=== PATIENT | female | born 1950 | race Caucasian/White ===

== ENCOUNTER → 2017-02-19 | Outpatient (CLI) | payer MEDICARE | END | disposition home or self-care (01) | LOC: YCFC.O 09:00 | PROVIDERS: ATTEND Nurse Practitioner Family | DX: Z00.00 Encounter for general adult medical examination without abnormal findings (principal); Z13.220 Encounter for screening for lipoid disorders; E55.9 Vitamin D deficiency, unspecified ==

== ENCOUNTER → 2017-04-30 | Outpatient (CLI) | payer MEDICARE | END | disposition home or self-care (01) | LOC: YCFC.O 15:03 | PROVIDERS: ATTEND Nurse Practitioner Family | DX: R50.9 Fever, unspecified (principal) ==

== ENCOUNTER → 2017-08-21 | Outpatient (CLI) | payer MEDICARE ==
--- NOTE | 2017-08-21 23:44 | RAD ---
Procedure: XR ABDOMEN 2 VIEWS SUPINE ERECT Exam Date: 08/21/2017 Ordering Provider: EVELYN Victoria Clinical Indication: UNSPECIFIED ABDOMINAL PAIN Comparison: None Findings: There is no small or large bowel distention. There is no pneumoperitoneum. There are no suspicious calcifications. Pelvic phleboliths. Aortic calcification. There is no acute osseous abnormality. Scoliosis. Impression: 1. No acute findings. Electronically signed by: Manan Fish MD 08/21/2017 11:43 PM CDT
== END ==
LOC: RAD 14:30
PROVIDERS: ATTEND Nurse Practitioner Family
DX: R10.9 Unspecified abdominal pain (principal)

== ENCOUNTER → 2018-02-20 | Outpatient (CLI) | payer MEDICARE | LOC: LAB.O 08:24 | PROVIDERS: ATTEND Nurse Practitioner Family | DX: Z00.00 Encounter for general adult medical examination without abnormal findings (principal); Z13.220 Encounter for screening for lipoid disorders ==

== ENCOUNTER → 2018-02-22 | Outpatient (CLI) | payer MEDICARE ==
--- NOTE | 2018-02-22 13:07 | RAD ---
EXAM DESCRIPTION: Chest,2 Views CLINICAL HISTORY: CHEST PAIN COMPARISON: Previous study April 05, 2016 TECHNIQUE: PA/lateral FINDINGS: Dextroscoliotic curvature of the thoracic spine. Tubular density over the right neck may be external to the patient. Right apical pleural-parenchymal scarring is unchanged compared to previous. Heart size is normal with normal pulmonary vascularity. No pleural effusion or pneumothorax. Lungs are clear with no consolidating infiltrate. Lateral view shows intact sternum and T-spine. IMPRESSION: No acute process is identified in the chest. Electronically signed by: Tucker Cowan MD 02/22/2018 1:06 PM [facility]
== END ==
LOC: YCFC.O 10:08
PROVIDERS: ATTEND Nurse Practitioner Family
DX: R07.89 Other chest pain (principal)

== ENCOUNTER → 2018-12-06 | Outpatient (CLI) | payer MEDICARE | LOC: LAB.O 10:53 | PROVIDERS: ATTEND Nurse Practitioner Family | DX: R07.89 Other chest pain (principal); R00.0 Tachycardia, unspecified ==

== ENCOUNTER → 2019-08-05 | Outpatient (CLI) | payer MEDICARE, OTHER ==
--- NOTE | 2019-08-05 16:10 | CT ---
EXAM DESCRIPTION: Lung Screen Low Dose CLINICAL HISTORY: 68 years Female, HX OF TOBACCO USE COMPARISON: None. TECHNIQUE: 3 mm axial images through the lungs were performed in soft tissue and lung windows in the absence of intravenous contrast. Images were obtained using a low dose protocol and coronal and sagittal reconstructions were obtained. FINDINGS: The visualized thyroid gland and supraclavicular region appear normal. No evidence of abnormally enlarged mediastinal, hilar or axillary lymphadenopathy. Trachea is midline and the central tracheobronchial tree is patent. Emphysema. Scarring is noted in the bilateral lung apices. In addition there is a 2.4 x 1 cm soft tissue density in the right lung apex which could also represent scarring. However associated soft tissue mass cannot be completely excluded. No evidence of pleural effusions. The heart is normal in size with no pericardial effusion. The visualized aorta is nonaneurysmal with moderate atherosclerosis. The superior vena cava is normal in size and caliber. Moderate coronary artery atherosclerosis. Small hiatal hernia with reflux. Limited evaluation of the upper abdomen demonstrates no gross abnormality. Moderate degenerative changes are identified throughout the visualized spine. IMPRESSION: Emphysema with biapical scarring. In addition there is a 2.4 x 1 cm soft tissue mass in the right lung apex which could represent scarring. However underlying mass cannot be completely excluded. Attention on further follow-up studies is recommended. Lung RADS category 2. Electronically signed by: Georgina Cordoba MD 08/05/2019 4:08 PM CDT
== END ==
LOC: CT 15:00
PROVIDERS: ATTEND Family Medicine
DX: Z87.891 Personal history of nicotine dependence (principal); J43.9 Emphysema, unspecified; J98.4 Other disorders of lung; R91.8 Other nonspecific abnormal finding of lung field

== ENCOUNTER → 2019-08-15 | Outpatient (CLI) | payer MEDICARE ==
--- NOTE | 2019-08-18 07:16 | RAD ---
EXAM DESCRIPTION: Hand,Left 3 Views CLINICAL HISTORY: 69 years Female, DOG BITE COMPARISON: None. FINDINGS: Three views of the left hand show no acute fracture or malalignment. No radiopaque foreign body or soft tissue gas. Soft tissue injury overlying the fourth PIP joint is suspected. IMPRESSION: Soft tissue injury without acute fracture or malalignment. Electronically signed by: Declan Rodriguez MD 08/18/2019 7:14 AM CDT
== END ==
LOC: YCFC.O 17:13
PROVIDERS: ATTEND Nurse Practitioner
DX: S61.452A Open bite of left hand, initial encounter (principal)

== ENCOUNTER 2019-11-03 05:23 | Day surgery (SDC) | payer MEDICARE ==
[2019-11-03] MEDS: PROPARACAINE 0.5% OPHTH SOL 15 ML BTTL RIGHT_EYE ONE ×2 (08:52→09:34)
[2019-11-03] MEDS: MOXIFLOXACIN HCL (OPHTH) 1 DROP DROPS RIGHT_EYE ONE ×2 (08:53→09:37)
[2019-11-03] MEDS: DEXAMETHASONE 0.1% OPHTH SOL 1 DROP RIGHT_EYE ONE ×2 (08:53→09:34)
[2019-11-03] MEDS: LIDOCAINE 1% 2 ML VIAL INJ ONE ×2 (08:53→09:34)
[2019-11-03] MEDS: BRIMONIDINE 0.2% OPHTH DROPS RIGHT_EYE ONE ×2 (08:54→09:34)
[2019-11-03] MEDS: TOBRAMYCIN SULF 0.3 % OPHT SOL 1 DROP RIGHT_EYE ONE ×2 (08:54→09:34)
[2019-11-03] MEDS ORDERED: PROPARACAINE 0.5% OPHTH SOL 15 ML BTTL ONE (08:55)
[2019-11-03] MEDS ORDERED: MOXIFLOXACIN HCL (OPHTH) 1 DROP DROPS ONE (08:55)
[2019-11-03] MEDS ORDERED: TROP1%/CYCLOPEN 1%/PHENYL 2.5% DROPS ONE (08:55)
[2019-11-03] MEDS ORDERED: MIDAZOLAM INJ 2 MG/2 ML VIAL ONE (09:17)
== END 2019-11-03 10:26 | disposition home health service (06) ==
LOC: AMB 05:23
PROVIDERS: ATTEND Ophthalmology
DX: H25.11 Age-related nuclear cataract, right eye (principal); I10 Essential (primary) hypertension; I25.10 Atherosclerotic heart disease of native coronary artery without angina pectoris; F17.200 Nicotine dependence, unspecified, uncomplicated; J44.9 Chronic obstructive pulmonary disease, unspecified; E66.9 Obesity, unspecified; Z79.899 Other long term (current) drug therapy; Z79.82 Long term (current) use of aspirin; Z79.02 Long term (current) use of antithrombotics/antiplatelets; Z95.5 Presence of coronary angioplasty implant and graft
CPT/HCPCS: 00142; 66984; J2250

== ENCOUNTER 2019-12-27 13:27 | Observation (INO) | payer MEDICARE ==
[2019-12-27] MEDS ORDERED: SODIUM CHLORIDE 0.9% (FLUSH) 10 ML SYG IV PRN ×2 (13:41→18:03)
[2019-12-27] MEDS ORDERED: SODIUM CHLORIDE 0.9% 1000ML 1,000 ML IVS ONE ×2 (13:42→14:33)
--- NOTE | 2019-12-27 13:45 | ED.PDOC ---
History of Present Illness - General Chief Complaint: Syncope/Near Syncope Time Seen by Provider: 12/27/19 13:41 Source: patient - History of Present Illness Initial Comments: 69-year-old female with PMH of hypertension, CAD with coronary stents who is brought in by EMS from [facility] for chief complaint of passing out which occurred just prior to arrival. Patient reports she was driving her car when she had sudden onset of generalized severe crampy abdominal pain. She felt the strong urge to need to defecate so she stopped at the [facility] and was trying to walk into the bathroom when she suddenly felt very dizzy and passed out and collapsed to the ground striking the back right of her head against the ground when she fell. Fall was witnessed by bystanders and EMS called. Bystanders reported she was having poor breathing for a short while and then a short while later was awake and alert. Patient believes she was only out for a few seconds but is unsure. She states when she woke up she felt very nauseous and had worse episodes of nonbloody nonbilious emesis. She also reported cold sweats, dyspnea, dizziness. She did have urinary incontinence with the episode. EMS reported stable vitals in route, fingerstick glucose 120s. She was given IV fluids and Zofran 4 mg IV in route. Patient reports now feeling much better. Denies any chest pain, palpitations, fevers, chills, cough, diarrhea. She reports history of similar episodes in the past which have occurred since she was young. The last episode occurred about 1 year ago. She reports she has had extensive work-up in the past but no one is able to figure out the etiology. She states it feels like "my bowels become kinked for a short while and then it resolves itself." She denies any known history of bowel obstruction in the past. Denies any hx of seizure disorder. Reports she had 2 coronary stents placed 2 months ago and takes ASA & Plavix. Allergies/Adverse Reactions: Allergies NO KNOWN ALLERGY Allergy (Verified 11/03/19 13:26) Home Medications: Ambulatory Orders Acetaminophen Arthritis [Tylenol Arthritis] 650 mg PO DAILY 11/03/19 Aspirin [Adult Aspirin Regimen] 81 mg PO DAILY 11/03/19 Atorvastatin Calcium 40 mg PO DAILY 11/03/19 Cholecalciferol [D3 2000] 5,000 unit PO DAILY 11/03/19 Citalopram Hydrobromide [Citalopram] 20 mg PO DAILY 11/03/19 Clopidogrel Bisulfate 75 mg PO DAILY 11/03/19 Diphenhydramine HCl (Sleep) [Sleep Aid] 50 mg PO BEDTIME 11/03/19 amLODIPine BESYLATE [Norvasc] 5 mg PO DAILY 11/03/19 Review of Systems - Review of Systems Review of Systems: 12/27/19 13:47 as per HPI All other Systems: Reviewed and Negative Past Medical History (General) - Patient Medical History Hx Congestive Heart Failure: No Hx Diabetes: No Family Medical History - Family History Mother Family History: Unknown Physical Exam - Physical Exam General Appearance: Alert, Comfortable, No apparent distress, Other - appears diaphoretic, slightly pale, emesis on blouse, wet pants from urinary incontinence Eye Exam: bilateral normal Ears, Nose, Throat: hearing grossly normal, normal ENT inspection, normal pharynx Neck: non-tender, full range of motion, supple, normal inspection Respiratory: lungs clear, normal breath sounds, no respiratory distress, no accessory muscle use Cardiovascular/Chest: normal peripheral pulses, regular rate, rhythm, no edema, no gallop, no JVD, no murmur Peripheral Pulses: radial,right: 2+, radial,left: 2+ Gastrointestinal/Abdominal: normal bowel sounds, non tender, soft, no organomegaly, no pulsatile mass Back Exam: normal inspection, no CVA tenderness, no vertebral tenderness Extremity: normal range of motion, non-tender, normal inspection, no pedal edema, no calf tenderness, normal capillary refill Neurologic: dice maker II-XII nml as tested, no motor/sensory deficits, alert, normal mood/affect, oriented x 3 Skin Exam: normal color, warm/dry Progress - Progress Progress: 12/27/19 13:48 Syncope, abdominal pain, dyspnea -Etiology uncertain. Consider ACS, vasovagal syncope, orthostatic syncope, dehydration, heat exhaustion, seizure, bowel obstruction, acute cholecystitis, acute symptomatic cholelithiasis, acute pancreatitis, ischemic bowel, UTI, cardiac arrhythmia, electrolyte derangement, other -Patient stable upon ED arrival, feeling much better -Obtain cardiac work-up, blood work, CT imaging of the head and C-spine for possible head/neck injuries 12/27/19 15:43 -Lab work was pertinent for serum lactate 2.5 but normal WBC with Left shift or bandemia. Initial troponin 0.02, d-dimer slightly elevated 900s, CPK 200s, alk phos 240s but LFTs otherwise within normal limits. -CT of the head and C-spine reveals no acute processes. -CTA chest and CT abdomen pelvis with IV contrast was done which revealed no evidence of PE or other acute processes. Patient does have extensive calcifications noted throughout the abdominal aorta and other vasculature. -Patient has remained stable in the ED. There is been no recurrence of abdominal pain, nausea, or syncopal episodes. No noted arrhythmias. -Etiology of the syncope is still unknown. Question possibly seizure disorder, bouts of ischemic colitis which is now resolved, cardiac arrhythmia, vasovagal, other neurogenic, dehydration, other. Lactate is elevated but doubtful of sepsis given no clear source, normal serum WBC, and patient afebrile. Will withhold antibiotics at the moment. Patient is feeling much better and wishing to go home. However, I advised that she stay for further observation in the hospital given the serious nature of her acute syncopal episode along with concerning labs of lactic acidosis. She is agreeable to staying. I spoke with Teresa Fermin, hospitalist, who accepts the patient for observation placement. Chano Olvera MD Billing #[id number] 12/27/19 13:41 Sodium Chloride 0.9% (Flush) [Saline Flush Syringe] 10 ml IV PRN PRN 12/27/19 13:42 URINALYSIS Stat 12/27/19 13:45 EKG STAT 12/27/19 14:12 Hold Metformin x 48Hrs [id number] 12/27/19 14:35 BLOOD CULTURE Stat 12/27/19 15:14 EKG Assessment ONCE 12/27/19 15:15 EKG STAT 12/27/19 15:27 TROPONIN-I Stat 12/28/19 09:00 Pulse Ox Daily Laboratory Results - last 24 hr 12/27/19 12/27/19 12/27/19 13:41 13:47 13:47 WBC 7.5 RBC 3.79 L Hgb 12.1 Hct 34.1 L MCV 89.9 MCH 31.8 H MCHC 35.4 RDW 13.1 Plt Count 337 MPV 8.2 Absolute Neuts (auto) 4.20 Absolute Lymphs (auto) 2.40 Absolute Monos (auto) 0.50 Absolute Eos (auto) 0.30 Absolute Basos (auto) 0.10 Neutrophils % 56.2 Lymphocytes % 32.0 Monocytes % 7.2 Eosinophils % 3.3 Basophils % 1.3 PT 9.4 INR < 1.00 PTT (SP) 21.9 D-Dimer, Quantitative 954.0 H* Sodium Potassium Chloride Carbon Dioxide Anion Gap BUN Creatinine BUN/Creatinine Ratio Random Glucose Serum Osmolality Lactic Acid 2.5 H* Calcium Total Bilirubin AST ALT Alkaline Phosphatase Creatine Kinase Troponin I B-Natriuretic Peptide Serum Total Protein Albumin Globulin Albumin/Globulin Ratio Amylase Lipase 12/27/19 12/27/19 12/27/19 13:47 13:47 13:47 WBC RBC Hgb Hct MCV MCH MCHC RDW Plt Count MPV Absolute Neuts (auto) Absolute Lymphs (auto) Absolute Monos (auto) Absolute Eos (auto) Absolute Basos (auto) Neutrophils % Lymphocytes % Monocytes % Eosinophils % Basophils % PT INR PTT (SP) D-Dimer, Quantitative Sodium 137 Potassium 3.4 L Chloride 101 Carbon Dioxide 22 Anion Gap 17.4 BUN 18 Creatinine 0.99 BUN/Creatinine Ratio 18.2 Random Glucose 120 H Serum Osmolality 276.9 Lactic Acid Calcium 9.2 Total Bilirubin 0.5 AST 33 ALT 31 Alkaline Phosphatase 241 H Creatine Kinase 203 H* Troponin I < 0.02 B-Natriuretic Peptide 35.5 Serum Total Protein 7.8 Albumin 3.9 Globulin 3.9 H Albumin/Globulin Ratio 1.0 L Amylase Lipase 12/27/19 13:53 WBC RBC Hgb Hct MCV MCH MCHC RDW Plt Count MPV Absolute Neuts (auto) Absolute Lymphs (auto) Absolute Monos (auto) Absolute Eos (auto) Absolute Basos (auto) Neutrophils % Lymphocytes % Monocytes % Eosinophils % Basophils % PT INR PTT (SP) D-Dimer, Quantitative Sodium Potassium Chloride Carbon Dioxide Anion Gap BUN Creatinine BUN/Creatinine Ratio Random Glucose Serum Osmolality Lactic Acid Calcium Total Bilirubin AST ALT Alkaline Phosphatase Creatine Kinase Troponin I B-Natriuretic Peptide Serum Total Protein Albumin Globulin Albumin/Globulin Ratio Amylase 101 H Lipase 37 - EKG/XRAY/CT EKG: Sinus - Normal sinus rhythm, heart rate 75, no ST elevations or Q waves noted, axis normal, intervals normal, compared to 12/06/2018 EKG appears largely unchanged. XRAY: chest - no acute processes per my read Departure - Departure Clinical Impression: Syncope Qualifiers: Syncope type: unspecified Qualified Code(s): R55 - Syncope and collapse Time of Disposition: 15:43 Disposition: Admit Patient Condition: Fair Departure Forms: ED Discharge - Pt. Copy, Patient Portal Self Enrollment Referrals: Obed Short MD [Primary Care Provider] - 1-2 Weeks Home Medications: Ambulatory Orders Acetaminophen Arthritis [Tylenol Arthritis] 650 mg PO DAILY 11/03/19 Aspirin [Adult Aspirin Regimen] 81 mg PO DAILY 11/03/19 Atorvastatin Calcium 40 mg PO DAILY 11/03/19 Cholecalciferol [D3 2000] 5,000 unit PO DAILY 11/03/19 Citalopram Hydrobromide [Citalopram] 20 mg PO DAILY 11/03/19 Clopidogrel Bisulfate 75 mg PO DAILY 11/03/19 Diphenhydramine HCl (Sleep) [Sleep Aid] 50 mg PO BEDTIME 11/03/19 amLODIPine BESYLATE [Norvasc] 5 mg PO DAILY 11/03/19 Decision To Admit - Decistion To Admit Decision to Admit Reason: Admit from ER Decision to Admit Date: 12/27/19 Decision to Admit Time: 15:52
[2019-12-27] MEDS ORDERED: PROMETHAZINE HCL INJ 12.5 MG in SODIUM CHLORIDE 0.9% 50ML 50 ML IVPB ONE (14:06)
--- NOTE | 2019-12-27 14:28 | CT ---
EXAM DESCRIPTION: Head CLINICAL HISTORY: fall, closed head injury, on ASA/Plavix COMPARISON: None available TECHNIQUE: Non contrast cranial CT with multiplanar reconstructions. FINDINGS: No acute intracranial hemorrhage, transcortical infarct, mass or mass effect. No intra or extra-axial fluid collection. Increased density within the bilateral lateral ventricles likely related to choroid plexus calcifications. No focal edema or midline shift. The ventricle and sulci are normal for age. No hydrocephalus. The trujillo-white matter differentiation is intact. Nonspecific mineralization of the bilateral basal ganglia. Intracranial atherosclerosis. No displaced calvarial fracture. Mild mucoperiosteal thickening involves the bilateral ethmoid air cells. Mild layering secretions noted within the left sphenoid sinus. The remainder of the visualized paranasal sinuses and the mastoids are clear. IMPRESSION: 1. No acute intracranial abnormality. 2. Paranasal sinus disease as above. This exam was performed according to our departmental dose-optimization program, which includes automated exposure control, adjustment of the mA and/or kV according to patient size and/or use of iterative reconstruction technique. Electronically signed by: Jerman Cameron DO 12/27/2019 2:26 PM CDT
--- NOTE | 2019-12-27 14:37 | CT ---
EXAM DESCRIPTION: Cervical Spine CLINICAL HISTORY: fall, closed head injury, on ASA/Plavix COMPARISON: CT chest 08/05/2019. TECHNIQUE: Cervical CT is performed with thin-section axial imaging. MPRs are created and reviewed as well. This exam was performed according to our departmental dose-optimization program, which includes automated exposure control, adjustment of the mA and/or kV according to patient size and/or use of iterative reconstruction technique. FINDINGS: Moderate multilevel cervical spine degenerative changes with degenerative trace (1-2 mm) anterolisthesis of C3 on C4. There is reversal of the cervical lordosis within the upper cervical spine. Multilevel intervertebral disc height loss, endplate sclerosis and small marginal osteophyte formation most pronounced at C4-C5 and C6-C7. Moderate bilateral facet hypertrophy more pronounced at C2-C3 and C3-C4 on the left. The vertebral body heights are relatively maintained. No displaced fracture or significantly appearing subluxation is seen. The craniocervical junction is intact. The atlantodental dental interval is intact. The prevertebral soft tissues are within normal limits. Right upper lobe 2.4 cm mass may be slightly more prominent when compared to prior examination dated 08/05/2019. IMPRESSION: 1. No acute cervical spine fracture or malalignment. 2. Moderate multilevel cervical spine degenerative changes. 3. Right upper lobe mass may be slightly more prominent when compared to prior examination dated 08/05/2019. Further evaluation with PET/CT or biopsy should be considered. Electronically signed by: Jerman Cameron DO 12/27/2019 2:36 PM CDT
--- NOTE | 2019-12-27 14:42 | RAD ---
EXAM DESCRIPTION: Chest,1 View CLINICAL HISTORY: 69 years Female, syncope, dyspnea COMPARISON: Radiographs 02/22/2018. CT chest dated 08/05/2019 TECHNIQUE: AP portable chest. FINDINGS/IMPRESSION: Biapical pleural thickening/scarring. Right upper lobe apical mass is better seen on prior CT. Mild central pulmonary vascular congestion. No focal consolidation, pneumothorax or pleural effusion seen. The heart is normal in size. The aortic knob is partially calcified. No acute osseous abnormality. Electronically signed by: Jerman Cameron DO 12/27/2019 2:41 PM CDT
--- NOTE | 2019-12-27 15:23 | CT ---
EXAMINATION: CT Angiogram Chest with contrast CT abdomen and pelvis INDICATION: Elevated d-dimer. Acute abdominal pain. Nausea and vomiting COMPARISON: CT chest from August 05, [address] abdomen from August 09, 2015 TECHNIQUE: Axial CT angiogram of the chest was obtained after the uneventful administration of intravenous contrast. 2D and 3D reconstructions, including advanced vessel analysis, are performed on an independent, advanced workstation. Axial CT scan of the abdomen and pelvis was obtained after the uneventful administration of intravenous contrast. Coronal and sagittal reformats were provided. This CT exam was performed using one or more of the following dose reduction techniques: Automated exposure control, Adjustment of the mA and/or kV according to patient size, Use of iterative reconstruction technique FINDINGS: PULMONARY ARTERY: No filling defects to suggest pulmonary embolism. HEART: Heart is normal in size. Coronary artery calcifications are present. THORACIC AORTA: Scattered atheromatous changes throughout the thoracic aorta. No aneurysm CHEST WALL: Normal THYROID: No thyroid nodules. LYMPH NODES: No pathologically enlarged axillary, mediastinal, or hilar lymph nodes. PRIMARY AIRWAYS: Primary airways are patent. LUNGS: [id number] emphysema changes. No pleural effusion. There are what appear to be stable areas of scarring noted at the bilateral lung apices. There is an area measuring 2.4 x 2.1 cm which appears to be more nodular the right lung apex. This could also represent an area of scarring, however is difficult to exclude a lung nodule. OTHER CHEST FINDINGS: N/A LIVER: No intrahepatic lesions. No intrahepatic biliary ductal dilation. GALLBLADDER AND CBD: Normal. PANCREAS: Normal. SPLEEN: Not enlarged. ADRENAL GLANDS: Normal. KIDNEYS AND URETERS: No solid or cystic renal mass. No hydronephrosis. URINARY BLADDER: Suboptimally distended and therefore not well evaluated. PELVIS: Hysterectomy changes. No free fluid in the pelvis. BOWEL: Gas and stool throughout the colon. Normal appendix No dilated loops of small bowel. No obstruction. Small hiatus hernia. AORTA AND VASCULATURE: Extensive atheromatous changes throughout the abdominal aorta. No aneurysm. LYMPH NODES: No pathologically enlarged retroperitoneal, mesenteric, or pelvic lymph nodes. ABDOMINAL WALL: Tiny fat-containing umbilicus hernia. MESENTERY/ASCITES: Normal. OSSEOUS STRUCTURES: There is dextroconvex curvature of the lower thoracic spine and levoconvex curvature of the lumbar spine. There are extensive multilevel degenerative changes noted throughout the thoracic or lumbar spine. There are mild degenerative changes of the hips. OTHER: N/A IMPRESSION: 1. No pulmonary embolism. 2. Iugarhxd-mm-drztxr emphysema changes. 3. There is what appears to be asymmetric scarring at the right lung apex favored over a true lung nodule. This is stable when compared to prior CT from August 05, 2019. An additional follow-up is recommended in 6 months versus a PET/CT. 4. No focal consolidation throughout the lungs 5. No acute inflammatory process in the abdomen or pelvis Electronically signed by: Lukas Maldonado MD 12/27/2019 3:21 PM CDT
[2019-12-27] MEDS ORDERED: ACETAMINOPHEN 325 MG TAB PO PRN (18:03)
[2019-12-27] MEDS ORDERED: ONDANSETRON INJ 4 MG/2 ML VIAL IV PRN (18:03)
[2019-12-27] MEDS ORDERED: IV SET AND CAP CHANGE INJ INJ SCH (18:30)
[2019-12-27] MEDS ORDERED: ENOXAPARIN SODIUM 40 MG/0.4 ML SYG SUBCU ONE (19:59)
[2019-12-27] MEDS ORDERED: diphenhydrAMINE HCL 25 MG CAP ONE (19:59)
[2019-12-27] MEDS ORDERED: DIPHENHYDRAMINE HCL 50 MG PO SCH (21:00)
[2019-12-27] MEDS ORDERED: ENOXAPARIN SODIUM 40 MG/0.4 ML SYG SUBCU SCH (21:00)
[2019-12-28] MEDS ORDERED: PANTOPRAZOLE SODIUM IV 40 MG VIAL ONE (04:57)
[2019-12-28] MEDS ORDERED: PANTOPRAZOLE SODIUM IV 40 MG VIAL IV SCH (06:30)
[2019-12-28] MEDS ORDERED: CITALOPRAM HBR 20 MG TAB ONE (08:53)
[2019-12-28] MEDS ORDERED: CLOPIDOGREL 75 MG TAB ONE (08:53)
[2019-12-28] MEDS ORDERED: ASPIRIN (ENTERIC COATED) 81 MG TAB PO ONE (08:53)
[2019-12-28] MEDS ORDERED: amLODIPine BESYLATE 5 MG TAB ONE (08:53)
[2019-12-28] MEDS ORDERED: CYCLOBENZAPRINE HCL 10 MG TAB ONE (08:54)
[2019-12-28] MEDS ORDERED: ATORVASTATIN 20 MG TAB PO ONE (08:54)
[2019-12-28] MEDS ORDERED: ASPIRIN (ENTERIC COATED) 81 MG TAB PO SCH (09:00)
[2019-12-28] MEDS ORDERED: CYCLOBENZAPRINE HCL 10 MG TAB PO SCH (09:00)
[2019-12-28] MEDS ORDERED: amLODIPine BESYLATE 5 MG TAB PO SCH (09:00)
[2019-12-28] MEDS ORDERED: NON-FORMULARY MEDICATION 1 EA MIS (Atorvastatin Calcium [Atorvastatin Calcium] 40 MG) PO SCH (09:00)
[2019-12-28] MEDS ORDERED: CITALOPRAM HBR 20 MG TAB PO SCH (09:00)
[2019-12-28] MEDS ORDERED: CLOPIDOGREL 75 MG TAB PO SCH (09:00)
[2019-12-28 12:41] VITALS: BP 130/72; TEMP 98; O2SAT 95
--- NOTE | 2020-01-05 09:03 | SSS ---
SUPERVISING PHYSICIAN: Campos Kellogg MD DISCHARGE DIAGNOSES: 1. Syncopal episodes with loss of consciousness. 2. History of syncopal episodes since she was a child with unknown etiology. 3. Hypertension. 4. Hyperlipidemia. HISTORY OF PRESENT ILLNESS: This is a 69 year-old patient with a past history of hypertension and some recent coronary stents. She was brought to the Emergency Room via ambulance from [facility] with a chief complaint of passing out at [facility]. It is reported that she was driving her car and had a strong urge to defecate so on her way home she stopped at [facility] and on the way to the bathroom she suddenly felt very dizzy and she passed out and collapsed to the floor. It was witnessed by bystanders. She did have loss of consciousness. The paramedics were called. Initially, she was short of breath with low 02 saturation. She was placed on oxygen and became more alert. It was reported that she was only out for a few seconds. By the time she reached the Emergency Room, she was alert and oriented. She had complaints of diaphoresis with a glucose in the 120s. She was nauseated but did not actually vomit. She has had this off and on since she was a young child. She said her sister also has the same type of episodes and has had quite a bit of testing done and it is still of unknown etiology. She got to the Emergency Room and her vital signs were stable. Her labs showed a CBC that was unremarkable with an elevated D-dimer at 954. Potassium was slightly low at 3.4. All other electrolytes were within normal limits. Her usual lactic acid is 2.5. The creatinine kinase is 203, negative troponin. Amylase 101, lipase 37, TSH was 1.27. Urinalysis was unremarkable. Blood cultures were drawn. She had a chest x-ray which showed: 1. Biapical pleural thickening and scarring, right upper lobe apical mass, better seen on prior CTs. 2. Mild central pulmonary vasculature congestion but no focal consolidation, pneumothorax or pleural effusion. Normal sized heart. 3. The aortic knob is partially calcified ad no acute osseous abnormalities. Cervical spine CT showed: 1. No acute cervical spine spine fracture or malalignment. 2. Moderate multilevel cervical spine degenerative changes. 3. Right upper lobe mass, slightly more prominent when compared to prior examination. Recommend PET, CT or biopsy as an outpatient. Head CT: 1. No acute intracranial abnormality. 2. Paranasal sinus disease as above. Chest/Thorax CTA: 1. No pulmonary embolism. 2. Moderate to severe emphysema changes. 3. Symmetrical scarring in the right lung apex favored over a true lung nodule, stable when compared to prior CT from August 05, 2019. Additional followup is recommended, 6 months with PET versus CT. 4. No focal consolidations in the lungs. 5. No acute inflammatory process in the abdomen or pelvis. The patient was placed in observation in the hospital. PAST MEDICAL HISTORY: 1. Hypertension. 2. Syncopal episodes since childhood. 3. Hyperlipidemia. PAST SURGICAL HISTORY: 1. Hysterectomy. 2. Breast biopsy. 3. Two cardiac stents. CURRENT MEDICATIONS: 1. Acetaminophen. 2. Aspirin. 3. Atorvastatin. 4. Vitamin D3. 5. Citalopram. 6. Plavix. 7. Diphenhydramine. 8. Amlodipine. ALLERGIES: No known drug allergies. SOCIAL HISTORY: She smokes about a half pack of cigarettes daily and has for many years. She denies any ETOH or illicit drug use. REVIEW OF SYSTEMS: GENERAL: Negative for fever,chills or weight changes. HEENT: Negative for sinus symptoms, ear pain, vision changes, sore throat. RESPIRATORY: Negative for coughing, wheezing, shortness of breath. CARDIAC: Negative for chest pain, palpitations, tachycardia. GI: Positive for nausea and vomiting, cramping but negative for abdominal pain or constipation. GENITOURINARY: Negative for hematuria, dysuria, polyuria. SKIN: Negative for lesions or rashes. NEUROLOGICAL: Positive for syncope and weakness, negative for seizures or headaches, PHYSICAL EXAMINATION: VITAL SIGNS: Temperature 98, heart rate 79, blood pressure 130/72, respiratory rate 18, oxygen saturation 95% on room air. GENERAL: This is a 69 year-old female patient lying in her hospital bed. She is in no acute distress. HEENT: Normocephalic and atraumatic. Pupils are equal and reactive. Oropharynx is clear. NECK: Supple without mass. CHEST: Essence clear to auscultation bilaterally. There is equal rise and fall of the chest with inspiration and expiration. CARDIOVASCULAR: Regular rate and rhythm. ABDOMEN: Soft, nondistended, non-tender. Bowel sounds are positive. EXTREMITIES: No cyanosis, clubbing, or edema. SKIN: Warm and dry. NEUROLOGIC: She is awake, alert, and oriented x3. Cranial nerves II through XII are grossly intact as tested. LABORATORY: CBC is unremarkable with hemoglobin of 11.2, hematocrit 32.1. Electrolytes are basically within normal limits with the exception of alkaline phosphatase is elevated at 217. All other labs and films are per the EMR. HOSPITAL COURSE: The patient was placed in observation. Neuro checks were done and she was placed on an laboratory monitor to watch her heart rate. She had no further symptoms. She will be discharged home with close followup with Dr. Short. DISCHARGE PLAN: The patient will be discharged home in stable condition. She is to resume her previous diet and activity and increase her activity as tolerated. She is to return to the hospital on 12/31/19 for an MRI of the brain and carotid ultrasound. She is to resume her previous medications. I have given her a few Xanax for her MRI. Followup with Dr. Short and to call his office and get an appointment after her MRI. It may be helpful for her to have a industrial maintenance manager for about a week to rule out any kind of cardiac arrhythmias. Clinically, at this time she does not appear to have a sinus infection but that can be followed up when she sees Dr. Short and review the MRI as well as the carotid ultrasound and if it is recommended she have a head scan or CT scan of her lungs in the next 6 months. I have also discussed smoking cessation at length and she understands that she should do so. She is to call Dr. Short's office or return to the hospital for any problems or complications. DISCHARGE MEDICATIONS: 1. Amlodipine. 2. Plavix. 3. Citalopram. 4. Atorvastatin. 5. Diphenhydramine. 6. Vitamin D3. 7. Aspirin. 8. Acetaminophen with Tylenol. 9. Cyclobenzaprine. 10. Alprazolam. #[id number] [facility]
== END 2019-12-28 13:14 | disposition home or self-care (01) ==
LOC: ER 13:27 → MS 16:18
PROVIDERS: ADMIT Nurse Practitioner Acute Care; ATTEND Nurse Practitioner Acute Care
DX: R55 Syncope and collapse (principal); I10 Essential (primary) hypertension; E78.5 Hyperlipidemia, unspecified; I25.10 Atherosclerotic heart disease of native coronary artery without angina pectoris; R09.02 Hypoxemia; E87.6 Hypokalemia; F17.210 Nicotine dependence, cigarettes, uncomplicated; M47.812 Spondylosis without myelopathy or radiculopathy, cervical region; R91.8 Other nonspecific abnormal finding of lung field; Z95.5 Presence of coronary angioplasty implant and graft; Z79.02 Long term (current) use of antithrombotics/antiplatelets; Z79.82 Long term (current) use of aspirin; Z79.899 Other long term (current) drug therapy
CPT/HCPCS: 96374; 96375; 96372; Q0163; J2550; J7030 ×2; A4216; J1650; 85379; 80053 ×2; 83036; 80061; 36415 ×5; 82150; 81001; 85025 ×2; 82550; 87040 ×2; 83690; 83735; 85730; 85610; 84443; 84484 ×2; 83880; 83605; 71045; 70450; 72125; 71275; 74177; 94760 ×5; 99285; 93005 ×2; G0378

== ENCOUNTER → 2020-03-17 | Outpatient (CLI) | payer MEDICARE | LOC: LAB.O 08:10 | DX: I25.118 Atherosclerotic heart disease of native coronary artery with other forms of angina pectoris (principal) ==

== ENCOUNTER → 2020-04-23 | Outpatient (CLI) | payer MEDICARE ==
--- NOTE | 2020-04-23 21:29 | RAD ---
EXAM: Hand,Right 3 Views INDICATION: 69 years Female, PAIN IN RIGHT HAND COMPARISON: None available FINDINGS: 3 views of the right hand were performed. Mild osteopenia. No fracture or dislocation. No destructive osseous lesion. Scattered mild joint space narrowing and subchondral sclerosis. No significant subchondral cystic change. No periosteal reaction or osseous erosions. No gross soft tissue abnormality or radiopaque foreign body. IMPRESSION: Mild scattered degenerative changes in the right hand without fracture or dislocation. Electronically signed by: Dora Stokes MD 04/23/2020 9:27 PM [facility]
== END ==
LOC: RAD 09:07
PROVIDERS: ATTEND Orthopaedic Surgery
DX: M19.041 Primary osteoarthritis, right hand (principal)

== ENCOUNTER 2020-04-27 05:37 | Day surgery (SDC) | payer MEDICARE ==
[2020-04-27] MEDS ORDERED: LIDOCAINE 1% 10 ML VIAL INJ ONE ×2 (05:38→06:57)
[2020-04-27] MEDS ORDERED: PROPOFOL 200 MG/20 ML VIAL IV ONE (05:38)
[2020-04-27] MEDS ORDERED: LACTATED RINGERS 1,000 ML ONE (06:34)
[2020-04-27] MEDS ORDERED: SODIUM CHL 0.9% 100ML MINI-BAG 100 ML IVPB ONE (06:36)
[2020-04-27] MEDS ORDERED: ceFAZolin SODIUM 1 GM VIAL ONE (06:36)
[2020-04-27] MEDS ORDERED: BUPIVACAINE 0.25% INJ 30 ML VIAL INJ ONE (06:58)
[2020-04-27] MEDS ORDERED: LACTATED RINGERS 1,000 ML IVS ONE (09:15)
[2020-04-27] MEDS: VANCOMYCIN HCL INJ 1,000 MG VIAL IVPB ONE ×2 (10:11→10:16)
[2020-04-27] MEDS: ceFAZolin SODIUM 1 GM VIAL ONE ×2 (10:11→10:16)
[2020-04-27 10:46] VITALS: O2SAT 99
[2020-04-27 10:59] VITALS: BP 148/55; TEMP 98.3
--- NOTE | 2020-04-29 08:02 | OP ---
DATE OF PROCEDURE: 04/27/20 PREOPERATIVE DIAGNOSIS: 1. Right trigger thumb. POSTOPERATIVE DIAGNOSIS: 1. Right trigger thumb. PROCEDURE: 1. Trigger thumb release. SURGEON: Jack Garber MD. GAS PLANT OPERATOR: Kwame Montes CST, SA-C. ANESTHESIA: Local with sedation. COMPLICATIONS: None. FINDINGS: Triggering at the A1 isaac. INDICATION: Ms. Urban has a history of triggering at the A1 isaac which is painful and did disrupt her ability to use her hand at times. Because of her symptoms, she requested operative intervention. After discussing the risks, benefits and alternatives to operative therapy, the patient has given informed consent for trigger finger release. PROCEDURE: The patient was brought to the Operating Room and placed in the supine position. Sedation was administered and local anesthetic was injected into the operative area. Following injection, the arm was sterilely prepped and draped. A transverse incision was made directly overlying the A1 isaac of the triggering digit and blunt dissection was carried down to the isaac while protecting the digital nerves. After identification of the isaac, the isaac was transected and a Devers elevator was passed both proximally and distally to ensure complete release. The finger was flexed and extended and there was no evidence of locking or clicking. The wound was thoroughly irrigated and closed with Nylon suture. A sterile dressing was placed and the patient was taken to the Day Surgery Unit. POSTOPERATIVE PLAN: The patient has been encouraged to do range of motion of the digits and will followup with us in two days. #[id number] [facility]
== END 2020-04-27 10:59 | disposition home or self-care (01) ==
LOC: AMB 05:37
PROVIDERS: ATTEND Orthopaedic Surgery
DX: M65.311 Trigger thumb, right thumb (principal); M18.11 Unilateral primary osteoarthritis of first carpometacarpal joint, right hand; I25.10 Atherosclerotic heart disease of native coronary artery without angina pectoris; I10 Essential (primary) hypertension; F17.200 Nicotine dependence, unspecified, uncomplicated; Z79.899 Other long term (current) drug therapy
CPT/HCPCS: 01810; 26055; 80307; 87070; J0690; J3370; J3490; J7050; J7120